=== PATIENT | female | born 1980 | race Caucasian/White ===

== ENCOUNTER 2024-11-22 14:40 | Outpatient (OUT) | payer OTHER, SELFPAY ==
[2024-11-22 15:45] LABS: Free T3 2.72 pg/mL (2.18-3.98); Thyroid Stimulating Hormone 2.166 uIU/mL (0.358-3.740)
== END 2024-11-22 14:41 | disposition home or self-care (01) ==
LOC: LAB 14:42
PROVIDERS: PCP Family Medicine; Visit Provider Family Medicine
DX: E03.9 Hypothyroidism, unspecified (principal)
CPT/HCPCS: 36415; 84439; 84443; 84481